=== PATIENT | male | born 1960 | race Caucasian/White ===

== ENCOUNTER → 2018-08-07 | Outpatient (CLI) | payer OTHER, BC ==
[~2018-08-07] MED LIST: ATORVASTATIN CA80 MG PO; CHOL100013 PO; LEVO50TA5 PO; MELO15TA23 PO; SERT100T PO; TRAM50TA PO
--- NOTE | 2018-08-07 13:48 | RAD ---
AP and Lateral Views of the Chest 08/07/2018 1:16 PM Indication: PRE SURGICAL EVALUATION, HX OF HYPERLIPIDEMIA Comparison: None Findings: There is no focal consolidation or infiltrate identified. The cardiomediastinal silhouette is within normal limits. There is no evidence of pneumothorax or pleural effusion. No acute osseous abnormalities are identified. Impression: No evidence of acute cardiopulmonary process. Electronically signed by: Rubio Soria MD (08/07/2018 1:44 PM) [id number]
== END | disposition home or self-care (01) ==
LOC: EDBD 08:45 → SURGPAT 13:48
PROVIDERS: ATTEND Orthopaedic Surgery
DX: Z01.818 Encounter for other preprocedural examination (principal); M17.12 Unilateral primary osteoarthritis, left knee; E78.5 Hyperlipidemia, unspecified
CPT/HCPCS: 71046

== ENCOUNTER → 2021-05-15 | Outpatient (CLI) | payer OTHER, BC ==
[2018-08-18 11:59] VITALS: BP 104/65
[~2021-05-15] MED LIST changes: +ASPI325T11 PO; +FERR325T14 PO; +PERFLUTREN PROTEIN-A MICROSPHR 0.22 MG/ML 3 ML VIAL. IV ONE; +SENN-37 PO
--- NOTE | 2021-05-18 12:32 | CARD ---
MR#: [id number] Date of Study: 05/15/2021 Ordering Physician: ALMITA ROBLEDO, Referring Physician: ALMITA ROBLEDO, Tech: Candace Joseph RDCS APPROVED REPORT INDICATION Dyspnea Echo Enhancing Agent Indication: Endocardial border delineation Agent/Amount Used: [id number] RISK FACTORS Obesity Hyperlipidemia Smoking Reason : Patient complained of pain PROCEDURE The patient underwent an Exercise Stress Test using the Alex Protocol. Blood pressure, heart rate, a nd EKG were monitored. An Echocardiogram was performed by deburring technician in four stages in quad fashion. At peak stress four se lected images were obtained and placed side by side with resting images for comparison. STRESS ECHO FINDINGS The resting Echocardiogram showed normal left ventricular systolic contractility with an estimated Ej ection Fraction of about 60 %. The Resting Echocardiogram showed normal augmentation of myocardial wall segments using a 16 segment model. The Stress Echocardiogram showed normal augmentation of myocardial wall segments using a 16 segment m anthony. The Stress Echocardiogram left ventricular systolic contractility has an estimated Ejection Fraction of about 70%. Test Type: Exercise Stress Nurse/Tech: Apolonia Barnett RN Test Indications: Shortness of air, COVID 10/19 Cardiac History and Allergies: Hypertension, High cholesterol Medications: see EMR Medical History: see EMR Resting ECG: SR Resting Heart Rate: 89 bpm Resting Blood Pressure: 150/57mmHg Pretest Chest Pain: No chest pain Nurse/Tech Notes S1,S2 and lungs clear to auscultation. Stress Symptoms No chest pain or symptoms. POST EXERCISE Reason for Termination: Reached target heart rate Target HR: No Max HR: 158 bpm 99% of Maximum Predicted HR: 159 bpm Exercise duration: 7:06 min:sec, 3 Stage Exercise capacity: 10.1METs Max Blood Pressure: 171/59mmHg Blood Pressure response to exercise: Normal blood pressure response during stress. Heart Rate response to exercise: WNL Chest Pain: Yes. Arrhythmia: No. ST Change: No. INTERPRETATION Stress EKG Conclusion: No evidence of stress-induced EKG changes RECOMMENDATIONS Low risk study overall Preliminary Notification Critical Value: No <Conclusion> No significant abnormalities on baseline EKG Normal resting wall motion and ejection fraction of 60%. Adequate exercise capacity with 10.1 Mets on exercise treadmill testing No evidence of stress-induced EKG changes Normal wall motion at peak stress and ejection fraction of greater than 70%. Signed by : Anatoliy Squires, Electronically Approved : 05/18/2021 12:32:08
== END ==
LOC: ECHO 12:30
PROVIDERS: ATTEND Family Medicine
DX: R06.02 Shortness of breath (principal)
CPT/HCPCS: 93017; 93350; Q9956